=== PATIENT | male | born 1990 | race Caucasian/White ===

== ENCOUNTER 2025-04-07 10:31 | Emergency (ER) | payer BC, SELFPAY ==
[2025-04-07 10:44] VITALS: BP 132/83; PULSE 75; RESP 16; TEMP 36.2; O2SAT 97; BMI 28.3
--- NOTE | 2025-04-07 10:48 | DI.RAD.S_ITS ---
PROCEDURE: XR CHEST 1V INDICATIONS: cough x 1 month TECHNIQUE: One view of the chest was acquired. COMPARISON: None. FINDINGS: Surgical changes and devices: None. Lungs and pleura: Lungs are clear. No pleural effusions or pneumothorax. Mediastinum: Mediastinal contours appear normal. Heart size is normal. Bones and chest wall: No suspicious bony lesions. Overlying soft tissues appear unremarkable. IMPRESSION: No acute cardiopulmonary abnormality is seen. Approved by: Cathy Leonard M.D.,Ph.D. on 04/07/2025 at 11:49
--- NOTE | 2025-04-07 11:12 | ED.GENADULT ---
HPI - General Adult General Chief complaint: Upper Respiratory Symptoms Stated complaint: Respiratory issues, cough, wheezing, yellow phlegm Time Seen by Provider: 04/07/25 10:51 History of Present Illness HPI narrative: 35-year-old gentleman with a history of anxiety, childhood asthma has been coughing for the last 10 days it is getting progressively worse and now he is having some exertional dyspnea. He has not needed inhalers for any asthma like issues for a number of years. No significant fevers or chills at this point. No chest pain, palpitations, abdominal pain. Related Data Home Medications ?Medication ?Instructions ?Recorded ?Confirmed carboxymethylcellulose sodium 0.5 drp EYE-BOTH 10/17/23 10/17/23 % eye drops in a dropperette (Refresh Plus) chlorthalidone 25 mg tablet 25 mg PO DAILY 10/17/23 10/17/23 fexofenadine 180 mg tablet 180 mg PO DAILY 10/17/23 10/17/23 montelukast 10 mg tablet 10 mg PO DAILY 10/17/23 10/17/23 propranolol 60 mg capsule,24 60 mg PO DAILY 10/17/23 10/17/23 hr,extended release venlafaxine 150 mg 150 mg PO DAILY 10/17/23 10/17/23 capsule,extended release 24 hr Previous Rx's ?Medication ?Instructions ?Recorded prednisone 20 mg tablet 40 mg (2 x 20 mg) PO DAILY #10 tabs 04/07/25 Allergies Allergy/AdvReac Type Severity Reaction Status Date / Time ketorolac (From Toradol) AdvReac Mild Anxiety Verified 10/17/23 13:07 prochlorperazine (From AdvReac Mild Anxiety Verified 10/17/23 13:07 Compazine) Review of Systems Review of Systems Narrative: Pertinent positive and negative findings as per HPI Exam Initial Vital Signs Initial Vital Signs: Vital Signs Temperature 97.1 F L 04/07/25 10:44 Pulse Rate 75 04/07/25 10:44 Respiratory Rate 16 04/07/25 10:44 Blood Pressure 132/83 04/07/25 10:44 Pulse Oximetry 97 04/07/25 10:44 Oxygen Delivery Method Room Air 04/07/25 10:44 General: Alert appropriate in no acute distress Respiratory: Able to speak in full sentences, no obvious respiratory distress or accessory muscle use. He has expiratory wheezes with his cough. There are no rhonchi or crackles appreciated. Cardiac: Regular rate and rhythm, no murmurs Skin: No obvious rashes, warm and dry Neurologic: Grossly intact no obvious asymmetries or abnormalities Psych: appropriate insight and affect, cooperative Course Orders Ordered: ED Orders 04/07/25 10:46 Covid-19 + FLU A/B + RSV - PCR Stat 04/07/25 10:48 XR chest 1V Stat Discontinued Medications Albuterol (Albuterol Hfa Prepack) 1 box MISC DIRECTED ONE Stop: 04/07/25 11:17 Last Admin: 04/07/25 11:39 Dose: 1 box Prednisone (Prednisone 20 Mg Tablet) 60 mg PO NOW ONE Stop: 04/07/25 11:17 Last Admin: 04/07/25 11:39 Dose: 60 mg Vital Signs Vital signs: Vital Signs - 8 hr 04/07/25 10:44 Temperature 97.1 F L Pulse Rate 75 Respiratory Rate 16 Blood Pressure 132/83 Pulse Oximetry 97 Oxygen Delivery Method Room Air Medical Decision Making Lab Data Labs: Lab Results 04/07/25 Range/Units 10:46 SARS-CoV-2 (PCR) Negative (Negative) Influenza A (RT-PCR) Flu a negative (NEGATIVE) Influenza B (RT-PCR) Flu b negative (NEGATIVE) RSV (PCR) Negative (Negative) MDM Narrative Medical decision making narrative: 35-year-old gentleman no significant medical history coughing for almost a month, getting worse and having difficulty sleeping. No longer having any fevers or chills. Chest x-ray does not show infiltrates. No evidence for influenza RSV or COVID. He does have moderate wheezing on exam. He responded nicely to 60 mg of oral prednisone and albuterol MDI. We discussed reactive airway disease in the setting of post viral cough. There is no current indication for antibiotics no sign of any bacterial infection. We will place him on 5 more days of prednisone, we will have him use the inhaler as needed and follow up with his primary care physician. There was no indication for further imaging lab work or hospitalization and he is safely discharged Discharge Plan Departure Patient Disposition: Home Clinical Impression: Upper respiratory infection Qualifiers: URI type: unspecified viral URI Qualified Code(s): J06.9 - Acute upper respiratory infection, unspecified RAD (reactive airway disease) Qualifiers: Asthma severity: mild Asthma persistence: intermittent Asthma complication type: with acute exacerbation Qualified Code(s): J45.21 - Mild intermittent asthma with (acute) exacerbation Instructions: DI for Reactive Airway Disease-Adult Activity Restrictions/Additional Instructions: Thank you for coming in today I think that you started out with a simple virus, the testing we did today does not show influenza, RSV or COVID. With your history of asthma as a child, he is still have the tendency for your airways to be more reactive. It is not uncommon to have continued wheeze and a cough after a viral upper respiratory infection. Your chest x-ray today does not suggest bacterial pneumonia, antibiotics are not indicated You were given an albuterol inhaler and initial dose of prednisone today. A prescription for prednisone 40 mg daily for the next 5 days was called to [facility] in [place]. Please use your MDI albuterol inhaler with your spacer, 2 puffs, every 4-6 hours as needed for significant cough If you find that you are getting worse or develop any new symptoms, please feel free to return to the emergency department for further evaluation. Prescriptions: New prednisone 20 mg tablet 40 mg PO DAILY Qty: 10 0RF No Action propranolol 60 mg capsule,extended release 24 hr 60 mg PO DAILY chlorthalidone 25 mg tablet 25 mg PO DAILY fexofenadine 180 mg tablet 180 mg PO DAILY venlafaxine 150 mg capsule,extended release 24hr 150 mg PO DAILY montelukast 10 mg tablet 10 mg PO DAILY carboxymethylcellulose sodium [Refresh Plus] 0.5 % dropperette EYE-BOTH Referrals: Miscellaneous,Doctor, [Primary Care Provider, Medical] Stand Alone Forms: Patient Portal/API
[2025-04-07 11:32] LABS: Influenza A - CEPHEID Flu A NEGATIVE (NEGATIVE); Influenza B - CEPHEID Flu B NEGATIVE (NEGATIVE)
[2025-04-07] MEDS: ALBUTEROL HFA PREPACK 1 BOX MISC (11:39)
[2025-04-07 11:48] LABS: COVID-19 CEPHEID 4-PLEX PCR Negative (Negative)
== END 2025-04-07 12:27 | disposition home or self-care (01) ==
PROVIDERS: Emergency Provider Emergency Medicine
DX: J06.9 Acute upper respiratory infection, unspecified (principal); J45.21 Mild intermittent asthma with (acute) exacerbation
CPT/HCPCS: 71045; 87637; 99283; 99284